=== PATIENT | female | born 1970 | race African-American/Black ===

== ENCOUNTER 2018-12-16 13:24 | Emergency (ER) | payer BC ==
[2018-12-16] MEDS ORDERED: DEXAMETHASONE SOD PHOSPHATE 10 MG/1 ML VIAL ONE (13:27)
[2018-12-16] MEDS ORDERED: EPINEPHrine/PF 1 MG/1 ML (1:1,000) AMPULE ONE (13:27)
[2018-12-16 13:32] VITALS: BP 154/90; PULSE 92; TEMP 98.5; BMI 22.8
--- NOTE | 2018-12-16 14:38 | PDOC ---
History of Present Illness - General Chief Complaint: Allergic Reaction Stated Complaint: ALLERGIC REACTION Time Seen by Provider: 12/16/18 13:56 - History of Present Illness Initial Comments: 12/16/18 14:19 48 yo F no known PMH presenting after allergic reaction. Reports that she was eating a bread roll around noon when she developed hives all over her body. Began to develop a swollen tongue and then throat itching. States that she had hives from various bread items in the past, but sporadically, and never with swollen tongue or throat itching sensation. Reportedly has seen an allergy doctor in the past and was not found to have an allergy. Denies CP, N/V, fevers/chill, abd pain, SOB. Endorses throat closing sensation and hives. Past History - Past Medical History Home Medications: Ambulatory Orders Epinephrine [Epipen] 0.3 mg IJ ONCE PRN #4 [email or web address] 12/16/18 COPD: No - Psycho Social/Smoking Cessation Hx Smoking History: Never smoked Hx Alcohol Use: Yes Drug/Substance Use Hx: No Review of Systems - Review of Systems Constitutional: No: Chills, Diaphoresis, Fever HEENTM: No: Recent change in vision, Double Vision, Hearing Loss, Throat Pain, Throat Swelling, Mouth Pain, Difficulty Swallowing, Mouth Swelling Respiratory: No: Cough, Orthopnea, Shortness of Breath Cardiac (ROS): No: Chest Pain ABD/GI: No: Constipated, Diarrhea, Nausea, Vomiting : No: Burning, Dysuria, Discharge, Frequency, Flank Pain Musculoskeletal: No: Back Pain, Muscle Pain Neurological: No: Headache, Numbness, Tingling, Weakness *Physical Exam - Vital Signs Last Vital Signs Temp Pulse Resp BP Pulse Ox 98.5 F 92 H 19 154/90 99 12/16/18 13:29 12/16/18 13:29 12/16/18 13:29 12/16/18 13:29 12/16/18 13:29 - Physical Exam Comments: 12/16/18 14:38 Gen: well-developed, well-nourished, NAD Neuro: AAOX4, CN II-XII intact, FTN intact, EOMI, PERRLA, 5/5 strength, SILT HEENT: atraumatic, normocephalic Neck: trachea midline, supple CV: tachycardic, regular rhythm, no murmurs, rubs, or gallops Pulm: CTA b/l, no wheezing Abd: soft, non-distended, non-tender MSK: full ROM, intact pulses Extr: no edema, no deformities Skin: warm, dry, mild hives across face and hands Medical Decision Making - Medical Decision Making 12/16/18 15:00 Patient without hives, breathing without issues. Has close follow up outpatient. Will watch for another hour, then dc home with multiple Epipens to follow up with PMD and mental health program specialist. 12/16/18 15:00 Patient still back to baseline, will dc home. Discharge - Discharge Information Problems reviewed: Yes Clinical Impression/Diagnosis: Allergic reaction Condition: Improved Disposition: HOME - Additional Discharge Information Prescriptions: Epinephrine [Epipen] 0.3 mg IJ ONCE PRN #4 [email or web address] PRN Reason: Allergies - Follow up/Referral Referrals: Yolanda Lockwood [Primary Care Provider] - - Patient Discharge Instructions Additional Instructions: You were seen with an allergic reaction. 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 Teach the people around you how to administer if needed. Follow up with your primary care doctor within one week. Follow up with an mental health program specialist as soon as possible. Return to the ED if you develop worsening symptoms. - Post Discharge Activity
--- NOTE | 2018-12-16 15:59 | PDOC ---
Attending Attestation - Resident Resident Name: [email or web address] - ED Attending Attestation I have performed the following: I have examined & evaluated the patient, The case was reviewed & discussed with the resident, I agree w/resident's findings & plan, Exceptions are as noted - HPI HPI: 12/16/18 15:59 Ms. Hinton is a 48 yo F no known PMH presenting to the ER after allergic reaction. Patient is allergic reaction began while eating a bread roll at approximately noon. Patient took 2 Benadryl's which typically would take away her symptoms however today this did not help. She went and see the school nurse who gave her something to drink and called 911. Upon arrival of EMS at the scene, patient was noted to have diffuse urticaria, no difficulty breathing. She did have tongue swelling and burning in her throat No wheezing, no stridor. Of note, patient states that she has had allergic reactions in the past 2 certain types of pizza, and rolls. The symptoms are typically sporadic and do not always necessitate Benadryl Reportedly has seen an divisional storekeeper but was not found to have an allergy. Denies CP, N/V, fevers/chill, abd pain, SOB. - Physicial Exam PE: 12/16/18 16:03 Patient seen status post Epinephrine GENERAL: The patient is in no acute distress, speaking in clear and complete sentences ENT: Uvula is midline, nonedematous. Moist mucous membranes. No tongue edema NECK: Normal range of motion, supple, no nuchal rigidity (+) LAD LUNGS: Breath sounds equal, clear to auscultation bilaterally. No wheezes, no stridor HEART:Regular rate and rhythm, normal S1 and S2 without murmur, rub or gallop. ABDOMEN: Soft, nontender, normoactive bowel sounds. EXTREMITIES: Normal range of motion, no edema. NEUROLOGICAL: Cranial nerves II through XII grossly intact. Normal speech. No focal neurological deficits. SKIN: Skin erythematous patches on the chest wall, 2 urticarial lesions on the left upper extrema - Medical Decision Making 12/16/18 16:05 48-year-old female presents to the emergency department status post allergic reaction Patient was given epinephrine, Solu-Medrol, Benadryl Currently the urticarial lesions have resolved, tongue swelling has resolved, no wheezing, no stridor Patient observed for 4 hours since treatment She remained stable Patient asked to follow-up with another divisional storekeeper for skin testing In the interim, patient asked to avoid all bread products Return to the ER for any other severe concerns or complaints
== END 2018-12-16 16:25 | disposition home or self-care (01) ==
LOC: JER 13:24
DX: T78.1XXA Other adverse food reactions, not elsewhere classified, initial encounter (principal); T78.3XXA Angioneurotic edema, initial encounter; X58.XXXA Exposure to other specified factors, initial encounter; Z91.018 Allergy to other foods
CPT/HCPCS: 99282-25